=== PATIENT | male | born 1985 | race American Indian/Alaskan Native ===

== ENCOUNTER 2021-03-23 04:27 | Emergency (ER) | payer SELFPAY ==
[2021-03-23] MEDS ORDERED: AMOXICILLIN/K CLAV 875/125MG TAB PO ONE (05:05)
[2021-03-23] MEDS ORDERED: IBUPROFEN 600 MG TAB PO ONE (05:05)
[2021-03-23] MEDS ORDERED: ACETAMINOPHEN 500 MG TAB PO ONE (05:05)
[2021-03-23] MEDS ORDERED: ONDANSETRON 4 MG ODT TAB PO ONE (05:05)
[2021-03-23] MEDS ORDERED: dexAMETHasone 20 MG/5 ML VIAL IM ONE (05:05)
[2021-03-23] MEDS ORDERED: LIDOCAINE VISCOUS 2% 15 ML ORAL LIQD PO ONE (05:05)
--- NOTE | 2021-03-23 05:12 | Emergency Department Report ---
- General Chief Complaint: Upper Respiratory Infection Stated Complaint: RIGHT EAR PAIN,SORE THROAT,CHILLS Source: patient Mode of arrival: Ambulatory Limitations: No Limitations - History of Present Illness Initial Comments: Patient is a 36-year-old -Spanish male with no past medical history presents to the ED with complaint of acute onset persistent severe sore throat, dysphagia, nasal and sinus congestion, frontal sinus pressure and headache, severe right ear pain and diffuse body aches and pains with fever and chills for the last 2 days, worse in the last 12 hours. Patient states that he is unable to swallow any thing because of worsening pain in his throat. Patient states that no one else at home has had similar symptoms. Patient denies dizziness, syncope, chest pain, shortness of breath, abdominal pain, cough, nausea, vomiting, diarrhea, dysuria, urinary frequency and urgency, testicular pain or neck pain. MD Complaint: fever, cough, sore throat, rhinorrhea, nasal congestion, sinus pain, other (Right ear pain) -: Sudden, days(s) (2) Severity: severe Severity scale (0 -10): 7 Quality: sharp, aching Consistency: constant Improves With: nothing Worsens With: nothing Associated Symptoms: fever, chills, myalgias, headache, rhinorrhea, nasal congestion, sore throat, cough, ear pain (right). denies: diaphoresis, chest pain, shortness of breath, abdominal pain, nausea, vomiting, diarrhea, dysuria, rash, right sweats, weight loss, hoarseness, other Treatments Prior to Arrival: "cold medicine" - Related Data Previous Rx's Medication Instructions Recorded Last Taken Type Ibuprofen [Motrin] 800 mg PO Q8HR PRN #30 tablet 03/23/21 Unknown Rx Lidocaine Viscous 2% 10 ml PO Q6H PRN #120 ml 03/23/21 Unknown Rx Penicillin V Potassium 500 mg PO Q6H #40 tablet 03/23/21 Unknown Rx predniSONE [Deltasone] 40 mg PO QDAY #10 tab 03/23/21 Unknown Rx Allergies Allergy/AdvReac Type Severity Reaction Status Date / Time No Known Allergies Allergy Unverified 03/23/21 05:02 ED Review of Systems ROS: Stated complaint: RIGHT EAR PAIN,SORE THROAT,CHILLS Other details as noted in HPI Constitutional: chills, malaise. denies: fever Eyes: denies: eye pain, eye discharge, vision change ENT: ear pain (Right ear pain), throat pain, congestion Respiratory: cough. denies: shortness of breath, wheezing Cardiovascular: denies: chest pain, palpitations Endocrine: no symptoms reported Gastrointestinal: denies: abdominal pain, nausea, diarrhea Genitourinary: denies: urgency, dysuria Musculoskeletal: denies: back pain, joint swelling, arthralgia Skin: denies: rash, lesions Neurological: headache. denies: weakness, paresthesias Psychiatric: denies: anxiety, depression Hematological/Lymphatic: denies: easy bleeding, easy bruising ED Past Medical Hx - Past Medical History Previous Medical History?: No - Surgical History Past Surgical History?: No - Social History Smoking Status: Never Smoker - Medications Home Medications: Home Medications Medication Instructions Recorded Confirmed Last Taken Type Ibuprofen [Motrin] 800 mg PO Q8HR PRN #30 tablet 03/23/21 Unknown Rx Lidocaine Viscous 2% 10 ml PO Q6H PRN #120 ml 03/23/21 Unknown Rx Penicillin V Potassium 500 mg PO Q6H #40 tablet 03/23/21 Unknown Rx predniSONE [Deltasone] 40 mg PO QDAY #10 tab 03/23/21 Unknown Rx ED Physical Exam - General Limitations: No Limitations General appearance: alert, in no apparent distress, anxious - Head Head exam: Present: atraumatic, normocephalic, normal inspection - Eye Eye exam: Present: normal appearance, PERRL, EOMI Pupils: Present: normal accommodation - ENT ENT exam: Present: mucous membranes moist, other (Grossly congested nasal passag es; erythematous bulging right tympanic membrane with effusion; erythematous tonsils with thick white exudates, uvula is midline) - Neck Neck exam: Present: normal inspection, full ROM, lymphadenopathy - Respiratory Respiratory exam: Present: normal lung sounds bilaterally. Absent: respiratory distress, wheezes, rales, rhonchi, stridor, chest wall tenderness, accessory muscle use, decreased breath sounds, prolonged expiratory - Cardiovascular Cardiovascular Exam: Present: regular rate, normal rhythm, normal heart sounds. Absent: systolic murmur, diastolic murmur, rubs, gallop - GI/Abdominal GI/Abdominal exam: Present: soft, normal bowel sounds. Absent: tenderness, guarding, rebound, hyperactive bowel sounds, hypoactive bowel sounds, organomegaly - Extremities Exam Extremities exam: Present: normal inspection, full ROM, normal capillary refill - Back Exam Back exam: Present: normal inspection, full ROM. Absent: tenderness, CVA tenderness (R), CVA tenderness (L), muscle spasm, paraspinal tenderness, vertebral tenderness - Neurological Exam Neurological exam: Present: alert, oriented X3, CN II-XII intact, normal gait, reflexes normal - Psychiatric Psychiatric exam: Present: normal affect, normal mood - Skin Skin exam: Present: warm, dry, intact, normal color. Absent: rash ED Course Vital Signs 03/23/21 05:02 Temperature 100.5 F H Pulse Rate 89 Respiratory 18 Rate Blood Pressure 154/94 O2 Sat by Pulse 98 Oximetry ED Medical Decision Making - Medical Decision Making This is a 36-year-old -Spanish male with no past medical history presents to the ED with complaint of acute onset persistent severe sore throat, dysphagia, nasal and sinus congestion, frontal sinus pressure and headache, severe right ear pain and diffuse body aches and pains with fever and chills for the last 2 days, worse in the last 12 hours. Patient states that he is unable to swallow any thing because of worsening pain in his throat. Patient states that no one else at home has had similar symptoms. In the ED, patient is alert and oriented x3 and is not in any distress but febrile in triage. Patient was treated in the ED for fever and also given pain medication and given initial oral antibiotics in the ED. On reevaluation, patient's pain is well controlled medication. Fever also resolved and the patient was discharged home on pain medications and antibiotics for suspected streptococcal pharyngitis or tonsillitis, and acute otitis media. Patient was advised to drink plenty of fluids while taking the antibiotics and pain medications, and to follow-up with his primary care physician in 7 to 10 days for reevaluation or return to the ED immediately if symptoms get worse. - Differential Diagnosis Strep pharyngitis; strep tonsillitis; otitis media; URI; bronchitis; Critical care attestation.: If time is entered above; I have spent that time in minutes in the direct care of this critically ill patient, excluding procedure time. ED Disposition Clinical Impression: Acute streptococcal pharyngitis, Acute bacterial tonsillitis, Acute otitis media with effusion of right ear, Acute upper respiratory infection Disposition: TO HOME OR SELFCARE Is pt being admited?: No Does the pt Need Aspirin: No Condition: Stable Instructions: Tonsillitis, [id number], Otitis Media, Adult, [id number], Strep Throat, Adult, [id number], Upper Respiratory Infection, Adult, [id number], Pharyngitis, [id number] Additional Instructions: Take medication with food, drink plenty of fluids and follow-up with your primary care physician in 7 to 10 days for reevaluation. Return to the ED immediately if symptoms get worse. Prescriptions: predniSONE [Deltasone] 40 mg PO QDAY #10 tab Lidocaine Viscous 2% 10 ml PO Q6H PRN #120 ml PRN Reason: Sore Throat Ibuprofen [Motrin] 800 mg PO Q8HR PRN #30 tablet PRN Reason: Pain , Severe (7-10) Penicillin V Potassium 500 mg PO Q6H #40 tablet Referrals: [facility] [Provider Group] - 7-10 days Forms: Work/School Release Form(ED) Time of Disposition: 05:09 Print Language: ANGUILLAN
[2021-03-23 05:13] VITALS: BP 154/94
== END 2021-03-23 07:13 | disposition home or self-care (01) ==
LOC: ED 04:27
DX: J02.0 Streptococcal pharyngitis (principal); B95.5 Unspecified streptococcus as the cause of diseases classified elsewhere; B96.89 Other specified bacterial agents as the cause of diseases classified elsewhere; H65.191 Other acute nonsuppurative otitis media, right ear; Z79.899 Other long term (current) drug therapy
CPT/HCPCS: 96372; 99282; J1100; Q0162